=== PATIENT | female | born 1995 | race Hispanic/Latino ===

== ENCOUNTER 2017-06-20 12:41 | Emergency (ER) | payer SELFPAY | END 2017-06-20 13:59 | disposition home or self-care (01) | LOC: EDH 12:41 | DX: S83.8X2A Sprain of other specified parts of left knee, initial encounter (principal); Z98.890 Other specified postprocedural states; X58.XXXA Exposure to other specified factors, initial encounter; Y93.01 Activity, walking, marching and hiking; Y92.89 Other specified places as the place of occurrence of the external cause; Y99.8 Other external cause status | CPT/HCPCS: 73562 ==

== ENCOUNTER 2017-09-03 03:27 | Emergency (ER) | payer OTHER ==
[2017-09-03] MEDS ORDERED: ACETAMINOPHEN EXTRA STRENGTH 500 MG TABLET ONE (04:00)
[2017-09-03] MEDS ORDERED: AMOXICILLIN 500 MG CAPSULE PO ONE (04:20)
== END 2017-09-03 04:27 | disposition home or self-care (01) ==
LOC: EDH 03:27
DX: H66.91 Otitis media, unspecified, right ear (principal)

== ENCOUNTER 2019-06-13 10:41 | Observation (INO) | payer MEDICAID ==
[~2019-06-13] VITALS: Ht 162.6 cm; Wt 98.4 kg
[2019-06-13] MEDS ORDERED: LACTATED RINGERS 1000ML 1,000 ML IV ONE (11:05)
[2019-06-13 11:53] VITALS: BP 136/77
[2019-06-24] MEDS ORDERED: PREN1TAB26 PO (16:58)
[2019-06-24] MEDS ORDERED: ACET325C6 PO (16:58)
[2019-06-24] MEDS ORDERED: FERS325 PO (16:58)
== END 2019-06-13 13:43 | disposition home or self-care (01) ==
LOC: EDH 10:41 → LDH 10:42
PROVIDERS: ADMIT Obstetrics & Gynecology; ATTEND Obstetrics & Gynecology
DX: O42.113 Preterm premature rupture of membranes, onset of labor more than 24 hours following rupture, third trimester (principal); O60.03 Preterm labor without delivery, third trimester; O99.013 Anemia complicating pregnancy, third trimester; D64.9 Anemia, unspecified; Z3A.32 32 weeks gestation of pregnancy
CPT/HCPCS: 99284; G0378 ×3; J7120